=== PATIENT | female | born 1950 | race Two or more races ===

== ENCOUNTER 2021-04-29 16:47 | Emergency (ER) | payer OTHER ==
[~2021-04-29] VITALS: Ht 165.1 cm; Wt 90.7 kg
--- NOTE | 2021-04-29 17:02 | NUR ---
THE PATIENT IS PRESENTED TO ER FOR C/O FEELING ANXIOUS AND STRESSED S/P DRIVING ALL MORNING WITH SON. THE PATIENT IS ALERT AND ORIENTED X3. IN ROOM AIR AND DENIES SOB. RESPIRATION REGULAR AND UNLABORED. DENIES PAIN. ATTACHED TO THE MONITOR.
[2021-04-29 17:20] LABS: BASOPHILS # (AUTO) 0.1 K/uL (0.0-0.2); BASOPHILS % (AUTO) 0.8 % (0.0-2.0); EOSINOPHILS % (AUTO) 0.9 % (0.0-6.0); HEMATOCRIT 41 % (33-45); HEMOGLOBIN 13.8 g/dL (11.5-14.8); LYMPHOCYTES # (AUTO) 3.8 K/uL (0.8-4.8); MEAN CORPUSCULAR HGB CONC 34 g/dl (31.0-36.0); MEAN CORPUSCULAR VOLUME 87 fL (82-100); MONOCYTES # (AUTO) 0.5 K/uL (0.1-1.30); NEUTROPHILS # (AUTO) 5.1 K/uL (1.8-8.9); NEUTROPHILS % (AUTO) 53.3 % (43.0-81.0); PLATELET COUNT (AUTO) 306 K/uL (150-450); RED BLOOD CELL COUNT(AUTO) 4.71 MIL/uL (4.0-5.2); WHITE BLOOD COUNT (AUTO) 9.5 K/uL (4.3-11.0)
[2021-04-29 17:30] LABS: CARBON DIOXIDE 22 mmol/L (21-32); CHLORIDE 107 mmol/L (98-107); CREATININE 0.8 mg/dL (0.6-1.3); GLUCOSE 108 mg/dL (74-106); POTASSIUM 3.9 mmol/L (3.5-5.1); SODIUM SERUM 144 mmol/L (136-145); UREA NITROGEN, BLOOD 18 mg/dL (7-18)
[2021-04-29 17:42] LABS: ALANINE AMINOTRANSFERASE 32 U/L (12-78); ALKALINE PHOSPHATASE 63 U/L (46-116); ASPARTATE AMINOTRANSFERASE 22 U/L (15-37); BILIRUBIN,DIRECT 0.1 mg/dL (0.0-0.2); BILIRUBIN,TOTAL 0.5 mg/dL (0.2-1.0); TOTAL PROTEIN, SERUM 7.5 g/dL (6.4-8.2)
[2021-04-29] MEDS ORDERED: TRAZ-182 PO (18:07)
[2021-04-29] MEDS ORDERED: SPIR25TA6 PO (18:07)
[2021-04-29] MEDS ORDERED: POTA20TA10 PO (18:07)
[2021-04-29] MEDS ORDERED: ARIP2TAB19 PO (18:07)
[2021-04-29] MEDS ORDERED: FLUO40CA49 PO (18:07)
[2021-04-29] MEDS ORDERED: ROSU40TA23 PO (18:07)
[2021-04-29] MEDS ORDERED: LISI10TA29 PO (18:07)
[2021-04-29] MEDS ORDERED: ETOD300C30 PO (18:07)
[2021-04-29] MEDS ORDERED: ASPIRIN 81 MG TAB.CHEW PO ONE (18:30)
[2021-04-29] MEDS ORDERED: ASPIRIN 81 MG TAB.CHEW ONE (18:30)
--- NOTE | 2021-04-29 18:30 | NUR ---
C/O CHEST PAIN. DR ZEE AWARE.
--- NOTE | 2021-04-29 18:32 | NUR ---
CALLED [facility] LATES VITALS 148-78 P92 97% RR20
--- NOTE | 2021-04-29 19:43 | NUR ---
visted pt at bedside. v/s stable, pt alert and oriented x4. no complaints at the moment will monitor.
--- NOTE | 2021-04-29 22:28 | NUR ---
TRANSFER INFORMATION PT ACCEPTED AT [facility] ER ACCEPTING MD PREETI Loyola PHONE NUMBER FOR REPORT [facility] ETA 1876
[2021-04-29 23:00] VITALS: BP 133/70
--- NOTE | 2021-04-29 23:26 | NUR ---
PT BEING TRANSPORTED VIA [facility] TO [facility].
== END 2021-04-29 23:32 | disposition short-term general hospital (02) ==
LOC: ER 16:51
DX: R07.9 Chest pain, unspecified (principal); E78.5 Hyperlipidemia, unspecified; I10 Essential (primary) hypertension; Z86.73 Personal history of transient ischemic attack (TIA), and cerebral infarction without residual deficits; Z20.822 Contact with and (suspected) exposure to COVID-19; Z88.5 Allergy status to narcotic agent; Z85.3 Personal history of malignant neoplasm of breast; Z90.10 Acquired absence of unspecified breast and nipple
CPT/HCPCS: 36415; 71045; 80048; 80076; 82962; 84484; 85025; 85730; 87426; 93005; 99285; C9803